=== PATIENT | female | born 1980 | race Caucasian/White ===

== ENCOUNTER 2023-08-23 09:03 | Day surgery (SDC) | payer BC ==
[~2023-08-23] VITALS: Ht 180.3 cm; Wt 81.1 kg
[~2023-08-23 09:03] MED LIST: BENA25CA4 PO; DULO1CAP5 PO
[2023-08-23] MEDS ORDERED: LR 1,000 ML IV SCH (09:15)
[2023-08-23] MEDS ORDERED: fentaNYL 250 MCG/5 ML INJECTION As Ordered ONE (09:18)
[2023-08-23] MEDS ORDERED: MIDAZOLAM INJ 2MG/2ML VIAL As Ordered ONE (09:19)
[2023-08-23] MEDS ORDERED: LIDOCAINE 2% 100MG/5ML SDV (FOR ANES.) As Ordered ONE (09:19)
[2023-08-23] MEDS ORDERED: propofoL 200 MG/20 ML VIAL As Ordered ONE (09:19)
[2023-08-23] MEDS ORDERED: ROCURONIUM BROMIDE 50MG/5ML VIAL As Ordered ONE ×2 (09:19→14:46)
[2023-08-23] MEDS ORDERED: ONDANSETRON 4MG 2ML VIAL As Ordered ONE (09:19)
[2023-08-23] MEDS ORDERED: ACETAMINOPHEN 1000MG 100ML IV BAG As Ordered ONE (09:29)
[2023-08-23] MEDS ORDERED: LIDOCAINE W/EPINEPHRINE 1% 20ML VIAL As Ordered ONE (11:09)
[2023-08-23] MEDS ORDERED: ePHEDrine SULFATE 25 MG/5 ML(5MG/ML) SYRINGE As Ordered ONE (14:06)
[2023-08-23] MEDS ORDERED: SUGAMMADEX SODIUM 500 MG/5 ML VIAL (BRIDION) As Ordered ONE (14:14)
[2023-08-23] MEDS ORDERED: CLINDAMYCIN 600MG/50ML PREMIX BAG As Ordered ONE (14:33)
[2023-08-23] MEDS ORDERED: oxyCODONE 5MG TAB PO PRN (15:30)
[2023-08-23] MEDS ORDERED: ONDANSETRON 4MG 2ML VIAL IV PRN (15:30)
[2023-08-23] MEDS ORDERED: MORPHINE 2 MG/ML 1ML VIAL IV PRN (15:30)
[2023-08-23] MEDS ORDERED: fentaNYL 100 MCG/2 ML INJECTION IV PRN (15:30)
[2023-08-23 16:38] VITALS: BP 134/72; TEMP 97.2; O2SAT 96
[2023-08-23] MEDS ORDERED: dexmedeTOMIDine (4MCG/ML)200MCG/50ML BTL (PRECEDEX) As Ordered ONE (17:41)
[2023-08-23] MEDS ORDERED: LABETALOL 100MG/20ML VIAL As Ordered ONE (18:00)
== END 2023-08-23 16:54 | disposition home or self-care (01) ==
LOC: M SDC 09:03
PROVIDERS: ATTEND Otolaryngology
DX: Q89.2 Congenital malformations of other endocrine glands (principal); F17.210 Nicotine dependence, cigarettes, uncomplicated
CPT/HCPCS: 60280; 88305; J0131; J0737; J1100; J1920; J2250; J2405; J3010